=== PATIENT | female | born 1955 | race Caucasian/White ===

== ENCOUNTER 2016-05-24 21:39 | Emergency (ER) | payer MEDICARE | END 2016-05-25 06:20 | disposition home or self-care (01) | LOC: ER1 21:39 | DX: M79.672 Pain in left foot (principal); M25.572 Pain in left ankle and joints of left foot; J44.9 Chronic obstructive pulmonary disease, unspecified; Z88.5 Allergy status to narcotic agent; Z88.8 Allergy status to other drugs, medicaments and biological substances | CPT/HCPCS: 73610; 73630; 99283 ==

== ENCOUNTER → 2021-01-03 | Outpatient (CLI) | payer OTHER ==
[~2021-01-03] MED LIST: CEFUROXIME500 MG PO; CLARITIN10 M2 PO; CLONAZEPAM1 MG PO; FLONASE 0.05% N16 GM; HUMIBID LA TAB600 MG PO; INCRUSE ELLI62.5 MCG INH; ISOSORBIDE MONO30 MG PO; KLONOPIN TAB 00.5 MG PO; KLOR-CON M2020 MEQ PO; LASIX20 MG PO; NEOSPORIN OINT30 GM TOP; NORCO 5-325 TA1 EACH PO; NORVASC 5 MG TAB5 MG PO; PERCOCET 5/325 T1 EA PO; PYRIDIUM200 MG PO; RANEXA500 MG PO; RELPAX40 MG PO; REQUIP2 MG PO; TOPAMAX25 MG PO; ZANTAC300 MG PO; ZOFRAN4 MG PO
== END ==
LOC: RAD 17:08
DX: R50.9 Fever, unspecified (principal); R05.1 Acute cough
CPT/HCPCS: 71046

== ENCOUNTER 2021-02-18 17:39 | Emergency (ER) | payer OTHER | END 2021-02-18 19:08 | disposition left against medical advice (07) | LOC: ER1 17:39 | DX: Z53.21 Procedure and treatment not carried out due to patient leaving prior to being seen by health care provider (principal) ==

== ENCOUNTER → 2021-03-21 | Outpatient (CLI) | payer OTHER ==
[~2021-03-21] MED LIST changes: +CHONDROITIN PO; +ELDERBERRY PO; +HYDROCODON-ACE1 EAC2 PO; +KEFLEX CAP 250250 MG PO; +KERATIN PO; +LASIX 40 MG TAB40 MG PO; +METOPROLOL TART25 MG PO; +MULTI-VITAMIN1 EACH PO; +OMEPRAZOLE40 MG PO; +ROPINIROLE HCL2 MG PO; +SINGULAIR10 MG PO; +SUPER B COMPLEX PO; +TOPIRAMATE25 MG PO; +VENTOLIN INH; +VINEGAR; +VITAMIN C PO; +VITAMIN D3 PO; +ZINC PO; +ZYRTEC10 MG PO
[2021-03-21 13:58] LABS: BUN/CREATININE RATIO 15 (0-10)
== END ==
LOC: OPSV2 12:00
PROVIDERS: Otolaryngology
DX: Z01.812 Encounter for preprocedural laboratory examination (principal); I50.9 Heart failure, unspecified
CPT/HCPCS: 36415; 80048

== ENCOUNTER → 2021-03-24 | Day surgery (SDC) | payer OTHER | END | disposition home or self-care (01) | LOC: OR 06:56 | DX: J34.2 Deviated nasal septum (principal); J34.3 Hypertrophy of nasal turbinates; J32.8 Other chronic sinusitis; H69.93 Unspecified Eustachian tube disorder, bilateral; H93.13 Tinnitus, bilateral; J44.9 Chronic obstructive pulmonary disease, unspecified; G47.30 Sleep apnea, unspecified; M79.7 Fibromyalgia; F41.9 Anxiety disorder, unspecified; F32.A Depression, unspecified; Z88.8 Allergy status to other drugs, medicaments and biological substances; Z79.82 Long term (current) use of aspirin; Z79.899 Other long term (current) drug therapy; Z90.710 Acquired absence of both cervix and uterus | CPT/HCPCS: C1726; J0171; J0690; J1100; J2001; J2250; J2405; J2704; J2710; J3010; J7030; J7120 ==

== ENCOUNTER → 2021-10-08 | Outpatient (CLI) | payer MEDICARE | LOC: NM 12:46 | DX: R06.02 Shortness of breath (principal); R00.2 Palpitations; R60.0 Localized edema; I11.0 Hypertensive heart disease with heart failure; I50.32 Chronic diastolic (congestive) heart failure | CPT/HCPCS: 78452; A9502; J2785 ==